=== PATIENT | female | born 1985 | race Caucasian/White ===

== ENCOUNTER 2020-01-26 07:40 | Inpatient (IN) | payer MEDICAID, SELFPAY ==
[2020-01-26] VITALS (52 sets, daily range): BP systolic 0–149; BP diastolic 0–86; PULSE 77–118; RESP 16–18; TEMP 36.6–37.6; BMI 29.2
[2020-01-26] MEDS: miSOPROStol 100 mcg tablet 25 MCG VAGINAL ×3 (08:35→19:43)
[2020-01-26 08:54] LABS: Basophils # 0.1 10^3/uL (0.0-0.1); Basophils % 0.4 %; Eosinophils # 0.1 10^3/uL (0.0-0.8); Eosinophils % 0.8 %; Hematocrit 33.2 % (37.0-47.0); Hemoglobin 10.9 g/dL (11.5-15.3); Lymphocytes # 1.9 10^3/uL (0.8-4.8); Mean Corpuscular HGB Conc 32.8 g/dL (30.0-36.0); Mean Corpuscular Hemoglobin 30.4 pg (28.0-34.0); Mean Corpuscular Volume 92.5 fL (81-99); Mean Platelet Volume 11.1 fL (7.4-10.4); Monocytes % 7.5 %; Neutrophils # 10.17 10^3/uL (1.8-7.7); Neutrophils % 76.7 %; Nucleated Red Blood Cells % 0 %; Platelet Count 232 10^3/cmm (130-400); Red Blood Count 3.59 10^6/uL (4.1-5.3); Red Cell Distribution Width 12.9 % (12.1-15.1); White Blood Count 13.2 10^3/uL (4.0-10.0)
[2020-01-26] MEDS: fentaNYL 50 mcg/mL INJ 2mL IVP ×3 (16:12→20:41)
[2020-01-26] MEDS: dextrose 5%-lactated ringers 1,000 ML 125 ML IV (16:12)
[2020-01-26] MEDS: morphine 4 mg/mL SDV 1 mL 8 MG IM (23:10)
[2020-01-26] MEDS: promethazine 25 mg/mL SDV 1 mL IM (23:10)
[2020-01-27] VITALS (193 sets, daily range): BP systolic 0–170; BP diastolic 0–103; PULSE 66–116; RESP 16–20; TEMP 36.3–37; O2SAT 98–100
[2020-01-27] MEDS: dextrose 5%-lactated ringers 1,000 ML 125 ML IV ×3 (03:04→18:43)
[2020-01-27] MEDS: fentaNYL 50 mcg/mL INJ 2mL IVP ×3 (06:48→16:05)
[2020-01-27] MEDS: miSOPROStol 100 mcg tablet 25 MCG VAGINAL (10:08)
[2020-01-27] MEDS: oxytocin 30 UNIT/500 ML BAG IV (15:03)
[2020-01-27] MEDS: lactated ringers 1,000 ML 999 ML IV ×2 (16:12→17:20)
--- NOTE | 2020-01-27 16:37 | PC.NURSE ---
anesthesia notified for epidural placement
--- NOTE | 2020-01-27 17:33 | ANES.PROC ---
Anesthesia Procedures Procedure/Date: 01/27/20 Epidural: Time Out Performed: Yes Consents Signed: Procedure Consent Consent: requested by attending/covering physician, risks and benefits reviewed and patient agrees to proceed Lumbar Level: L4-L5 Epidural position: sitting Epidural procedure: sterile prep of area, 1% lidocaine to numb the area, 18 g needle, negative for paresthesia passed, 1.5% xylocaine 1:200k epi, no systemic response and 0.2% Ropiavacaine @ mls/hr Additional Comments: Easy, single pass epidural with distinct saline GENEVIEVE; catheter advanced with great ease. No paresthesia or complication. Required continuous encouragement and coaching to maintain optimal procedural positioning and conditions.
--- NOTE | 2020-01-27 20:50 | PC.NURSE ---
Recurrent late decelerations noted in FHTs, pt repositioned at 2004, Pitocin turned off at 2009, O2 administered at 2012. Physician notified at 2018 of issue, resuscitation measures and return of FHTs to reactive. O2 off of patient at 2049.
[2020-01-28] VITALS (79 sets, daily range): BP systolic 0–150; BP diastolic 0–92; PULSE 78–130; RESP 8–20; TEMP 36.6–37.3
[2020-01-28] MEDS: dextrose 5%-lactated ringers 1,000 ML 125 ML IV ×2 (02:55→05:21)
[2020-01-28] MEDS: diphenhydrAMINE 50 mg/mL SDV 1mL 25 MG IVP (05:21)
--- NOTE | 2020-01-28 06:53 | P.HP_ITS ---
Providers/Chief Complaint Admitting Physician: Enoch Mohamud MD Primary Care Provider: Breanna Hawk MD Chief Complaint: INDUCTION OF LABOR History of Present Illness Saumya Saunders is a 34 year old female who is a 2 para 1 female at 39-1/2 weeks gestation. She is admitted to the hospital 2 days ago for cervical ripening for induction. She finally began making cervical change yesterday morning late and had spontaneous rupture membranes yesterday afternoon followed by further dilatation. She was approximately 7 cm x 9 p.m. She has been followed closely since that time and is dilated presently to approximately 9 cm dilatation. She is feeling a lot of pressure and discomfort. Presently she still at 0 station. heart tones have been very reassuring. Review of Systems Const: Reports: fatigue; Denies: fever(s) or chills ENMT: Denies: throat pain or oral sores Card: Denies: chest pain or palpitations Resp: Denies: dyspnea, productive cough or non-productive cough GI: Reports: abdominal pain (Contractions.); Denies: nausea or vomiting : Reports: vaginal discharge (Still clear fluid.); Denies: flank pain Musc: Reports: back pain; Denies: neck pain Neuro: Denies: headache(s), numbness in extremities or weakness in extremities Psych: Reports: anxiety (She is anxious because she has been here a little over 2 days with attempt ) Medications/Allergies Home Medications Medication Instructions Recorded Confirmed Last Taken Type Vitamin 1 tab PO DAILY 01/26/20 01/26/20 01/26/20 History Allergies Allergy/AdvReac Type Severity Reaction Status Date / Time No Known Allergies Allergy Verified 01/26/20 09:22 [facility] Acute Female Reproductive History: : 2 Vitals/I&O/Wt Last Vital Signs Temp 99.1 F 01/28/20 02:59 Pulse 104 H 01/28/20 06:39 Resp 17 01/27/20 18:30 BP 126/73 01/28/20 06:39 Pulse Ox 98 01/27/20 21:37 01/27/20 01/27/20 01/28/20 14:59 22:59 06:59 Intake Total 627.083 / 187.302 8996.400 / 2222.483 1100.784 / 3323.267 Balance 627.083 / 631.212 0046.400 / 2222.483 1100.784 / 3323.267 Weight last 48 hrs Weight 87.09 kg Physical Exam Const: COMMON NORMALS: no acute distress, average body habitus and healthy appearing HENMT: MOUTH: Normal oral and palatal mucosa present Resp: COMMON NORMALS: normal respiratory effort, No retractions, No use of accessory muscles and clear to auscultation bilaterally Cardio: COMMON NORMALS: regular rate, regular rhythm and No murmurs present (Cardio) GI: COMMON NORMALS: Normal to inspection, nondistended, normoactive bowel sounds present (She has a uterus.), Soft to palpation and non-tender : OB/EXTERNAL & SPECULUM: external exam normal MANUAL OB EXAM: dilated 9 cm, effaced fully and station 0 Extremity: COMMON NORMALS: normal to inspection, full ROM, no calf tenderness and no pedal edema Neuro: COMMON NORMALS: CN's II-XII intact bilaterally and moves all extremities Psych: COMMON NORMALS: mental status grossly normal and normal affect Urinary Catheter Management^: Major: Cath Placed During This Visit: yes Reason for Continuing Indwelling Catheter: Other Urinary Catheter Date of Insertion: 01/27/20 Urinary Catheter Time of Insertion: 18:30 Data : 01/26/20 08:20 A&P Assessment and plan (1) Term : I am afraid the patient may have a failure to descend and Major dilate. Will allow her to continue laboring at this time but she may require section if she does not make progress. Status: Acute Attestations Medical Necessity Statement*: This patient was admitted 2 days ago for induction and is still but nearing completion. She will require greater than 2 midnight hospital stay. Time Spent in Patient Care: Greater than 35 minutes Coding Level of Care Code Acute Child Psychometrist for Chg Fwd Diagnoses Term Z34.90
[2020-01-28] MEDS: ondansetron 2 mg/ML SDV 2 mL 4 MG IVP (07:35)
[2020-01-28] MEDS: hyDROXYzine 25 mg Capsule 50 MG PO (08:26)
--- NOTE | 2020-01-28 08:45 | ANES.PROC ---
Anesthesia Procedures Procedure/Date: 01/28/20 Procedure Narrative: Fentanyl 100mcg plus PF1% Lido 5ml given per epidural for increased labor pressure
--- NOTE | 2020-01-28 08:50 | PC.NURSE ---
0870 A Breakfield RN in room to assess and bolus epidural.
--- NOTE | 2020-01-28 11:09 | PM.DELIVERY ---
Delivery Note: Date of delivery: January 28, 2020 this 34-year-old 2 now para 2 female at 39 weeks and 5 days gestation was admitted 2 days prior to date of delivery for misoprostel cervical ripening for induction purposes. She was given multiple doses of misoprostol and made very slow change. Finally she began making bigger change and had spontaneous rupture membranes yesterday late afternoon. She did have some repetitive decelerations lasting about 8 minutes yesterday evening and this physician came in. The Pitocin augmentation was stopped at that time but everything recovered and a Pitocin was begun again. The tolerated the remainder of the labor process very well. The patient received epidural anesthesia but was not getting a lot of relief. She dilated to around 9 cm dilatation and stayed that way for several hours. She was given a new bolus of medicine and her epidural and it relaxed her and she dilated to complete cervical dilatation. She then pushed very well and delivered by spontaneous vaginal delivery healthy, viable female at 1047. There was no episiotomy but there was a small midline perineal laceration at delivery. This was repaired using 2-0 Vicryl suture with no problems. Upon delivery the 's head the mouth and nose were suctioned at the perineum. There was no nuchal cord. The left shoulder delivered anteriorly followed by the right shoulder. The infant was suctioned again and then laid on the mother's abdomen. After approximately 1 minute, the umbilical cord was clamped and then cut by the infant's father. The umbilical cord had 3 blood vessels. The placenta delivered spontaneously at 1050 without problems. The episiotomy was then repaired as stated above without problems. The vaginal vault was swept removing a few clots but no active bleeding and fundus was nice and firm. Apgars were 8 and 9 at 1 and 5 minutes respectively and estimated blood loss was 115 mL. The infant weighed 6 pounds 9 ounces. Pre-Delivery Course: This patient was followed by this physician throughout her without concerns or problems. Maternal blood type was A+ with antibody screen negative. Hepatitis B, hepatitis C, HIV and RPR were negative. Rubella was immune and group B strep was negative. Covid testing also done approximately 8 days prior to date of delivery was also negative. The patient did discuss with this physician and Dr. Segal the possibility of tubal ligation . Delivery: Spontaneous vaginal delivery. Post-Delivery Status: Patient is doing well at this time. Will evaluate to see if we are able to do tubal ligation with Covid testing 8 days ago. A&P Assessment and plan (1) Term : Status: Acute (2) Normal spontaneous vaginal delivery: Patient is doing well and will be followed for routine care. Tubal ligation if able otherwise will do it at 6 weeks. Status: Acute Coding Level of Care Code Acute Process Owner for Chg Fwd Diagnoses Term Z34.90 Normal spontaneous vaginal delivery O80
[2020-01-28] MEDS: lanolin oint 7 gm 1 APPLIC TOPICAL (13:06)
[2020-01-28] MEDS: benzocaine-menthol 78 gm Canister 1 SPRAY TOPICAL (13:07)
[2020-01-28] MEDS: ibuprofen 800 mg tablet PO ×2 (14:20→20:40)
[2020-01-28] MEDS: docusate sodium 100 mg Capsule PO (17:48)
[2020-01-29 00:27] LABS: Hemoglobin 9.2 g/dL (11.5-15.3); Mean Corpuscular HGB Conc 32.9 g/dL (30.0-36.0); Mean Corpuscular Hemoglobin 30.7 pg (28.0-34.0); Mean Corpuscular Volume 93.3 fL (81-99); Mean Platelet Volume 11.7 fL (7.4-10.4); Platelet Count 197 10^3/cmm (130-400); Red Cell Distribution Width 13.2 % (12.1-15.1); White Blood Count 15.7 10^3/uL (4.0-10.0)
[2020-01-29] MEDS: HYDROcodone-acetaminophen 5-325 mg Tablet PO ×2 (02:55→13:42)
[2020-01-29 04:45] VITALS: BP 120/79; PULSE 82; RESP 16; O2SAT 98
--- NOTE | 2020-01-29 05:34 | PM.OBGYCN ---
Providers/Reason for Consult Consulting Physican/Specialty*: Family medicine/OB Reason for Consult*: For a tubal ligation Attending Physician: Enoch Mohamud MD Primary Care Provider: Breanna Hawk MD [facility] Consult HPI History of Present Illness Saumya Saunders is a 34 year old 2 female at 39 weeks gestation who had an unremarkable delivery of a healthy . I had seen the patient earlier in her to discuss her desire for permanent sterilization. At that time we discussed the risks and alternatives. She made it clear that she wanted to proceed with a tubal ligation despite the risks and after full consideration of other forms of control. Present Details : 2 Para: 1 Review of Systems General: Reports: 10 or more systems reviewed and unremarkable except in HPI and below Const: Reports: fatigue; Denies: fever(s) Eyes: Denies: change in vision Card: Denies: chest pain Musc: Reports: back pain Derrick/Lymph: Denies: easy bruising Meds/Allergies Home Medications and Allergies Home Medications Medication Instructions Recorded Confirmed Last Taken Type Vitamin 1 tab PO DAILY 01/26/20 01/26/20 01/26/20 History Allergies Allergy/AdvReac Type Severity Reaction Status Date / Time No Known Allergies Allergy Verified 01/26/20 09:22 Current Medications Current Medications Generic Name Dose Route Start Last Admin Trade Name Freq PRN Reason Stop Dose Admin Hydrocodone Bitart/Acetaminophen 1 - 2 tab 01/28/20 11:06 01/29/20 02:55 Hydrocodone-Acetaminophen 5-325 Mg Tablet PO 1 tab Q6H PRN Administration MODERATE TO SEVERE PAIN Benzocaine 1 spray 01/28/20 11:06 01/28/20 13:07 Benzocaine-Menthol 78 Gm Canister TOPICAL 1 can PRN PRN Administration PAIN Docusate Sodium 100 mg 01/28/20 18:00 01/28/20 17:48 Docusate Sodium 100 Mg Capsule PO 100 mg BID CHAVEZ Administration Ibuprofen 800 mg 01/28/20 15:00 01/28/20 20:40 Ibuprofen 800 Mg Tablet PO 800 mg TID CHAVEZ Administration Lanolin 1 applic 01/28/20 11:06 01/28/20 13:06 Lanolin Oint 7 Gm TOPICAL 1 tube PRN PRN Administration DRYNESS Vitals/I&O/Wt Last Vital Signs Temp 98.0 F 01/28/20 20:45 Pulse 78 01/28/20 20:45 Resp 16 01/28/20 20:45 BP 122/73 01/28/20 20:45 Pulse Ox 98 01/27/20 21:37 01/28/20 01/28/20 01/29/20 14:59 22:59 06:59 Intake Total 156.333 / 156.333 Output Total 950 / 950 Balance -793.667 / -793.667 Physical Exam Const: COMMON NORMALS: patient oriented x3 and alert HENMT: COMMON NORMALS: moist oral mucous membranes HEAD & SCALP: normal to inspection Chest: COMMONS NORMALS: normal inspection of the chest Resp: COMMON NORMALS: clear to auscultation bilaterally AUSCULTATION: clear to auscultation bilaterally Cardio: COMMON NORMALS: regular rate and regular rhythm RATE: regular rate RHYTHM: regular rhythm GI: INSPECTION: Yes normal to inspection and Yes other (Gravid. Fundus is below the umbilicus.) Extremity: COMMON NORMALS: normal to inspection GENERAL: Yes edema (Trace) Neuro: COMMON NORMALS: patient oriented x3, moves all extremities and no sensory deficits noted SENSORIUM/ORIENTATION: Yes alert Psych: COMMON NORMALS: mental status grossly normal Skin: COMMON NORMALS: no rashes or lesions noted GENERAL SKIN EXAM: no rashes or lesions noted Urinary Catheter Management^: Major: Cath Placed During This Visit: yes, but has since been removed by the nurse Reason for Continuing Indwelling Catheter: Other Urinary Catheter Date of Insertion: 01/27/20 Urinary Catheter Time of Insertion: 18:30 Date Urinary Catheter Removed: 01/28/20 Time Urinary Catheter Discontinued: 10:30 A&P Assessment and plan (1) Normal spontaneous vaginal delivery: Status: Acute (2) Sterilization consult: At this point the tubal ligation is scheduled for 5:00 this afternoon. We once again discussed the risks of the procedure including the risks of bleeding, infection, and damage to intra-abdominal organs. We discussed the 1-200 chance becoming again despite a successful tubal ligation. We also discussed the increased risk of an ectopic . She and her partner had no further questions and wished to proceed. Status: Acute Consult Attestations Medical Necessity Statement: I anticipate the patient will be going home this evening, but possibly tomorrow depending on how she responds after her tubal ligation. Coding Level of Care Code Acute Precision Honer for Chg Fwd Diagnoses Normal spontaneous vaginal delivery O80 Sterilization consult Z30.09
[2020-01-29] MEDS: docusate sodium 100 mg Capsule PO (09:00)
[2020-01-29] MEDS: ibuprofen 800 mg tablet PO (09:00)
[2020-01-29] MEDS: prenatal vitamin Capsule 1 CAP PO (09:00)
--- NOTE | 2020-01-29 09:09 | PM.OBGYPN ---
PHOTOLITHOGRAPHER Subjective Labor: Station: +1 Amniotic Membrane Status: Ruptured Monitor Mode: External Contraction Pattern: Regular Status: Category I Vitals/I&O/Wt Last Vital Signs Temp 98.0 F 01/28/20 20:45 Pulse 82 01/29/20 04:45 Resp 16 01/29/20 04:45 BP 120/79 01/29/20 04:45 Pulse Ox 98 01/29/20 04:45 Physical Exam Narrative: EXAM NARRATIVE: Patient is doing well and baby is breast-feeding well. She has just had mild lochia with no significant problems. She is ambulating well and tolerating a regular diet. She is planning on having a tubal ligation this evening and possibly going home this evening if everything goes well. Const: COMMON NORMALS: no acute distress Resp: COMMON NORMALS: normal respiratory effort, No retractions, No use of accessory muscles and clear to auscultation bilaterally AUSCULTATION: clear to auscultation bilaterally Cardio: COMMON NORMALS: regular rate, regular rhythm and No murmurs present (Cardio) RATE: regular rate RHYTHM: regular rhythm GI: COMMON NORMALS: Normal to inspection, nondistended, normoactive bowel sounds present, Soft to palpation and non-tender (Fundus is firm.) PALPATION: Yes Soft to palpation Extremity: COMMON NORMALS: normal to inspection and no pedal edema Neuro: COMMON NORMALS: CN's II-XII intact bilaterally, no focal motor deficits and no sensory deficits noted Psych: COMMON NORMALS: mental status grossly normal and normal affect Urinary Catheter Management^: Major: Cath Placed During This Visit: yes, but has since been removed by the nurse Reason for Continuing Indwelling Catheter: Other Urinary Catheter Date of Insertion: 01/27/20 Urinary Catheter Time of Insertion: 18:30 Date Urinary Catheter Removed: 01/28/20 Time Urinary Catheter Discontinued: 10:30 Data : 01/28/20 23:30 A&P Assessment and plan (1) Normal spontaneous vaginal delivery: Patient is doing well at this time. We will continue routine care and possibly home this evening after tubal ligation is performed if everything goes well. Status: Acute Attestations Medical Necessity Statement*: This patient was in the hospital for 2 days for labor and delivery and is now day 1 . She has required hospitalization for this and can possibly go home this evening. Time Spent in Patient Care: less than 15 minutes Coding Level of Care Code Acute Chip Mixing Machine Operator for Chg Fwd Diagnoses Normal spontaneous vaginal delivery O80
--- NOTE | 2020-01-29 15:10 | PM.OBGYDC ---
Discharge Providers NUCLEAR RADIATION ENGINEER Date of Admission: 01/26/20 07:40 Date of Discharge: 01/29/20 Attending Provider at Admission: Enoch Mohamud MD Attending Provider at Discharge: Enoch Mohamud MD Primary Care Provider: Breanna Hawk MD Diagnoses at Discharge Discharge Diagnosis (1) Normal spontaneous vaginal delivery: Status: Acute Reason for Visit Reason for Visit: INDUCTION OF LABOR Hospital Course Hospital Course Patient has done very well sice delivery. She is ambulating well and tolerating regular diet. Her tubal ligation could not be done as Covid results were not back in time to get her on the schedule. She is felt to be stable for discharge. Will plan referral for tubal at 6 weeks . Information Peripartum Data: Infant Delivery Method: Vaginal Physical Exam Const: COMMON NORMALS: no acute distress Resp: COMMON NORMALS: normal respiratory effort, No retractions, No use of accessory muscles and clear to auscultation bilaterally AUSCULTATION: clear to auscultation bilaterally Cardio: COMMON NORMALS: regular rate, regular rhythm and No murmurs present (Cardio) RATE: regular rate RHYTHM: regular rhythm GI: COMMON NORMALS: Normal to inspection, nondistended, normoactive bowel sounds present, Soft to palpation and non-tender PALPATION: Yes Soft to palpation Extremity: COMMON NORMALS: no pedal edema Psych: COMMON NORMALS: mental status grossly normal, Normal thought process present, cooperative and normal affect THOUGHT PROCESS: Normal thought process present Urinary Catheter Management^: Major: Cath Placed During This Visit: yes, but has since been removed by the nurse Reason for Continuing Indwelling Catheter: Other Urinary Catheter Date of Insertion: 01/27/20 Urinary Catheter Time of Insertion: 18:30 Date Urinary Catheter Removed: 01/28/20 Time Urinary Catheter Discontinued: 10:30 Discharge Data Data Completed and Pending: Pending at discharge Category Date Time Status PTC COVID [Mason virus Lab Test PTC ] Routine Lab 01/28/20 11:35 Stop Req Labs from last 24 hours 01/28/20 23:30 WBC 15.7 H RBC 3.00 L Hgb 9.2 L Hct 28.0 L MCV 93.3 MCH 30.7 MCHC 32.9 RDW 13.2 Plt Count 197 MPV 11.7 H Vitals: Last Vital Signs Temp 98.0 F 12/16/20 20:45 Pulse 82 01/29/20 04:45 Resp 16 01/29/20 04:45 BP 120/79 01/29/20 04:45 Pulse Ox 98 01/29/20 04:45 Discharge Plan Discharge Patient Disposition: Home Condition: Stable Prescriptions: New docusate sodium [DOK] 100 mg Capsule 100 mg PO BID Qty: 60 RF: 1 ibuprofen 800 mg Tablet 800 mg PO TID Qty: 90 RF: 2 Lanolin (HPA) 100 % Cream 1 applic topical PRN PRN (Reason: Dryness) Qty: 90 RF: 1 Continued Vitamin 1 tab PO DAILY RF: 0 Discharge Orders: Discharge Order (Routine); Ordered 01/29/20 Ordered By: Enoch Mohamud Referrals: Enoch Mohamud MD [Physician] - 03/09/20 1:15 pm (* Your 6 week follow up is with Dr. Mohamud on 03/06/2019 at 1:15pm. You will discuss your tubal at this appointment) Discharge Diet: Usual diet Discharge Activity: Resume usual activity Patient Instructions: Ibuprofen (By mouth), Lanolin (On the skin), Vaginal Delivery (DC), OB Discharge Report, OB Food/Drug Interaction Guide, OB Home Care, OB Proud Parent Packet Discharge Attestations NUCLEAR RADIATION ENGINEER Time Spent in Discharge Care*: less than 30 min Specific Discharge Activities: Specific discharge activities: educating patient, documenting/other paperwork and evaluating patient/reviewing data Coding Level of Care Code Acute Forestry Aid for Chg Fwd Diagnoses Normal spontaneous vaginal delivery O80
[2020-01-29 16:45] VITALS: BP 120/80; PULSE 80; RESP 17; TEMP 36.7
[2020-01-29 16:47] VITALS: BP 120/80; PULSE 80; RESP 17; TEMP 36.7
[2020-01-29 17:09] LABS: Coronavirus Lab Test PTC Negative
== END 2020-01-29 16:58 | disposition home or self-care (01) | DRG 807 ==
PROVIDERS: Admitting Provider Family Medicine; PCP Family Medicine; Visit Provider Family Medicine
DX: O76 Abnormality in fetal heart rate and rhythm complicating labor and delivery (principal); Z37.0 Single live birth; Z3A.39 39 weeks gestation of pregnancy; O70.0 First degree perineal laceration during delivery
CPT/HCPCS: 12345; 36415; 51702; 59025; 59409; 85025; 85027; 87635; 90471; 90686; 96372; 96375; 98960; 99211; J1200; J2270; J2405; J2550; J2795; J3010

== ENCOUNTER 2025-01-23 14:25 | Emergency (ER) | payer BC, SELFPAY ==
[2025-01-23 14:31] VITALS: BP 103/76; PULSE 94; RESP 17; TEMP 36.8; O2SAT 99
--- NOTE | 2025-01-23 14:38 | ED_ITS ---
HPI - Neuro Symptoms/Deficit 2 General: Chief Complaint: Neuro Symptoms/Deficit Stated Complaint: flashes of light rt eye / shakes Time Seen by Provider: 01/23/25 14:37 History of Present Illness: 39-year-old female with a history of adama neno headaches who presents emergency room with neurologic symptoms. She says about 15 minutes ago she developed a strange feeling in her right eye and vision changes. Said she felt shaky. She also felt like she had some speech changes which are not present on my exam. Related Data Home Medications ?Medication ?Instructions ?Recorded ?Confirmed cyclobenzaprine 10 mg tablet 10 mg PO DAILY PRN migrai ap 01/23/25 01/23/25 meloxicam 15 mg tablet 15 mg PO DAILY PRN headaches 01/23/25 01/23/25 ondansetron 4 mg disintegrating 4 mg PO TID PRN Nausea And Vomiting 01/23/25 01/23/25 tablet Allergies Allergy/AdvReac Type Severity Reaction Status Date / Time No Known Allergies Allergy Verified 01/23/25 14:37 Review of Systems 2 Narrative: Constitutional symptoms: Negative except as documented in HPI. Skin symptoms: Negative except as documented in HPI. Eye symptoms: Negative except as documented in HPI. ENMT symptoms: Negative except as documented in HPI. Respiratory symptoms: Negative except as documented in HPI. Cardiovascular symptoms: Negative except as documented in HPI. Gastrointestinal symptoms: Negative except as documented in HPI. Genitourinary symptoms: Negative except as documented in HPI. Musculoskeletal symptoms: Negative except as documented in HPI. Neurologic symptoms: Negative except as documented in HPI. Psychiatric symptoms: Negative except as documented in HPI. Endocrine symptoms: Negative except as documented in HPI. PFSH ED 2 PFSH: Surgical History (Updated 03/20/20 @ 15:37 by Franki Solares MD) S/P bilateral foot surgery (~2004) Treatment for bunions. Age 19. Family History (Updated 03/20/20 @ 15:38 by Franki Solares MD) Father CAD (coronary artery disease) Hypertension Grandmother Diabetes Maternal Mother COPD (chronic obstructive pulmonary disease) CAD (coronary artery disease) Social History (Updated 03/20/20 @ 15:42 by Franki Solares MD) Smoking and tobacco/nicotine status: current every day tobacco/nicotine user cigarettes Packs smoked per day: 1 [ Other cigarette details: Started age 17. Stopped during .] Alcohol intake: current Alcohol intake frequency: holidays/special occasions only Substance/Drug Use: never Physical Exam 2 Narrative: EXAM NARRATIVE: General: Alert, no acute distress. Skin: Warm, dry. Head: Normocephalic, atraumatic. Neck: Supple, trachea midline. Eye: Extraocular movements are intact. Ears, nose, mouth and throat: mucosa moist. Cardiovascular: Regular, Normal peripheral perfusion. Respiratory: Lungs are clear to auscultation, respirations are non-labored, breath sounds are equal, Symmetrical chest wall expansion. Gastrointestinal: Soft, Nontender, Non distended Musculoskeletal: Normal ROM, no deformity. Neurological: Alert and oriented, No focal neurological deficit observed. Psychiatric: Cooperative, appropriate mood & affect. Course 2 Vital Signs: Vital signs: Vital Signs Temperature 98.3 F 01/23/25 14:31 Pulse Rate 81 01/23/25 17:00 Respiratory Rate 17 01/23/25 16:00 Blood Pressure 112/68 01/23/25 16:30 Pulse Oximetry 98 01/23/25 17:00 Oxygen Delivery Me thod Room Air 01/23/25 17:00 MDM - Neuro Symptoms/Deficit Medical Decision Making Medical decision making Patient's reason for coming to the emergency room: Neurologic symptoms, vision changes Social determinants: Patient is employed I reviewed the patient's medical record. Patient last visit to this facility was to OB back in 2020. I reviewed the patient's current home meds No chronic medications Alternate historians: None Differential diagnosis for patient with focal neurologic deficit(s) includes but not limited to and based on the above HPI, review of systems and physical exam: ischemic stroke, hemorrhagic stroke and embolic stroke secondary to atrial fibrillation), TIA, Toro's palsy, metabolic encephalopathy with previous stroke. Orders placed to evaluate differential diagnosis based on the above differential, HPI and physical exam 1420: Last known well time. 1440 my exam. NIH of 1. NIH Stroke Scale/Score (NIHSS) from [email or web address] on 01/23/2025 All calculations should be rechecked by clinician prior to use RESULT SUMMARY: 1 points NIH Stroke Scale INPUTS: 1A: Level of consciousness ?> 0 = Alert; keenly responsive 1B: Ask month and age ?> 0 = Both questions right 1C: 'Blink eyes' & 'squeeze hands' ?> 0 = Performs both tasks 2: Horizontal extraocular movements ?> 0 = Normal 3: Visual moran ?> 1 = Partial hemianopia 4: Facial palsy ?> 0 = Normal symmetry 5A: Left arm motor drift ?> 0 = No drift for 10 seconds 5B: Right arm motor drift ?> 0 = No drift for 10 seconds 6A: Left leg motor drift ?> 0 = No drift for 5 seconds 6B: Right leg motor drift ?> 0 = No drift for 5 seconds 7: Limb Ataxia ?> 0 = No ataxia 8: Sensation ?> 0 = Normal; no sensory loss 9: Language/aphasia ?> 0 = Normal; no aphasia 10: Dysarthria ?> 0 = Normal 11: Extinction/inattention ?> 0 = No abnormality CT head: No acute intracranial process. No intracranial hemorrhage, no evidence of infarct. No evidence of acute fracture. This was reviewed and interpreted by myself the emergency room physician. I also reviewed the radiology report. EKG time 1505. Rate 86.: Normal sinus rhythm, No ST-T changes, no ectopy, normal IA & QRS intervals, This was reviewed and interpreted by myself the ER physician at 1510 Lab Review: Laboratory results were reviewed and interpreted by myself the emergency room physician. No leukocytosis. No anemia. No renal failure. Reexamination: Patient is quite a bit improved. She still has some mild right eye lateral blurred vision. This is isolated to the right eye. Vision was grossly normal on exam and she did note this was isolated and not in her left eye when that was isolated. She will return to the emergency room if things worsen. Consultation: I spoke Dr. Campos. Dr. Perez will see the patient first thing on Sunday. Assessment and plan: Vision changes Possible atypical migraine ?Symptoms have improved considerably after receiving valproic acid - Discharged home - Discussed plan with patient. Answered any questions. - Evaluation and treatment of this problem were appropriate in the emergency setting. Lab Data 01/23/25 15:27 01/23/25 15:[address] 01/23/25 14:38 IMPRESSION: 1. No acute intracranial hemorrhage or edema. 2. Normal CT head. 3. LEFT maxillary sinusitis. Notified Andria Dick MD at 01/23/2025 2:52 PM. Laboratory Results WBC 9.72 10^3/uL (3.29-11.43) 12/12/25 15: RBC 4.50 10^6/uL (3.85-5.65) 01/23/25 15: Hgb 13.90 g/dL (11.27-16.99) 01/23/25 15:27 Hct 41.1 % (36-47) 01/23/25 15: MCV 91.3 fl (85-98) 01/23/25 15: MCH 30.9 pg (27-33) 01/23/25 15: MCHC 33.8 g/dL (30-55) 01/23/25 15: RDW 12.5 % (12.1-15.1) 01/23/25 15: Plt Count 267 10^3/cmm (157-399) 01/23/25 15: MPV 10.1 fL (7.4-10.4) 01/23/25 15: Neut % (Auto) 60.7 % 01/23/25 15: Lymph % (Auto) 30.0 % 01/23/25 15:27 [place] % (Auto) 6.3 % 01/23/25 15:27 Eos % (Auto) 1.9 % 01/23/25 15: Baso % (Auto) 0.7 % 01/23/25: Neut # (Auto) 5.90 10^3/uL (1.8-7.7) 01/23/25 15: Lymph # (Auto) 2.9 10^3/uL (0.8-4.8) 01/23/25 15: [place] # (Auto) 0.6 10^3/uL (0.2-0.9) 01/23/25 15:27 Eos # (Auto) 0.2 10^3/uL (0.0-0.8) 01/23/25: Baso # (Auto) 0.1 10^3/uL (0.0-0.1) 01/23/25 15: Nucleated RBC % (auto) 0 % 01/23/25 15: Nucleated RBCs # 0.0 /100WBC 01/23/25 15: PT 12.50 SECONDS (12.1-14.9) 01/23/25 15:27 INR 0.88 (0.8-1.2) 01/23/25 15:27 APTT 26.9 SECONDS (23.9-36.7) 01/23/25 15:27 Sodium 135 mmol/L (136-145) L 01/23/25 15:27 Potassium 3.7 mmol/L (3.5-5.1) 01/23/25 15:27 Chloride 100 mmol/L (98-107) 01/23/25 15:27 Carbon Dioxide 24 mmol/L (22-29) 01/23/25 15:27 Anion Gap 14.7 (5-19) 01/23/25 15:27 BUN 8 mg/dL (6-20) 01/23/25 15:27 Creatinine 0.6 mg/dL (0.5-0.9) 01/23/25 15:27 GFR Calculation 111.9 mL/min (90-130) 01/23/25 15:27 Glucose 88 mg/dL (65-115) 01/23/25 15:27 POC Glucose 90 mg/dL (70-110) 01/23/25 14:44 Calculated Osmolality 278 mOsm/kg (285-295) L 01/23/25 15:27 Lactic Acid 0.9 mmol/L (0.5-2.2) 01/23/25 15:27 Calcium 9.0 mg/dL (8.5-10.5) 01/23/25 15:27 Total Bilirubin 0.3 mg/dL (0.15-1.2) 01/23/25 15:27 AST 11 U/L (0-32) 01/23/25 15:27 ALT 17 U/L (0-33) 01/23/25 15:27 Alkaline Phosphatase 73 U/L (35-105) 01/23/25 15:27 Total Protein 6.8 g/dL (6.6-8.7) 01/23/25 15:27 Albumin 4.2 g/dL (3.5-5.2) 01/23/25 15:27 Globulin 2.6 g/dL (1.3-4.6) 01/23/25 15:27 All radiology interpretation(s) finalized by discharge Discharge Plan Discharge Patient Disposition: Home Clinical Impression: Alteration in vision, Atypical migraine Condition: Stable Prescriptions: No Action cyclobenzaprine [Flexeril] 10 mg Tablet 10 mg PO DAILY PRN (Reason: migraines) meloxicam 15 mg Tablet 15 mg PO DAILY PRN (Reason: headaches) ondansetron [Zofran ODT] 4 mg Tablet,Disintegrating 4 mg PO TID PRN (Reason: Nausea And Vomiting) Discharge Orders: Discharge ED (Routine); Ordered 01/23/25 Ordered By: Andria Dick Referrals: rosalind [Other] Ever Perez [Referring, Opthalmology] - 01/26/25 9:00 am Rosemarie Madsen PA [Primary Care Provider, [facility] [employer]] Discharge Diet: Usual diet Discharge Activity: Increase activity as tolerated Patient Instructions: Blurred Vision (ED), Opioid Safety, Pain Management, Patient Portal & Umesh Instructions Activity Restrictions/Additional Instructions: Thank you for choosing [facility] for your healthcare needs today. You have been screened and evaluated and felt safe for discharge. Health conditions do change or evolve sometimes and as such it is important that you follow up with your Primary Doctor to be re checked, 3-5 days is a general good time frame for follow up. You are always welcome to return to the ED for re assessment if your symptoms are worsening or you have new concerns. (Please note that included in your discharge packet is information concerning opioid safety and pain management. This information is given to all patients who are discharged from the ER regardless of their discharge diagnosis or the medicines they usually take or are prescribed.) Print Language: [place] Island[place] Coding Level of Care Code ED Supervisor [employer] for Lily Brown
--- NOTE | 2025-01-23 14:38 | CT_ITS ---
WS: [id number] CT HEAD NONCONTRAST HISTORY: possible stroke TECHNIQUE: Contiguous axial imaging performed through the brain. Bone and soft tissue windows. Sagittal and coronal reformats reviewed. All CT scans at [facility] use at least one of these dose optimization techniques: automated exposure control; mA and/or kV adjustment per patient size (includes targeted exams where dose is matched to clinical indication); or iterative reconstruction. DLP: 1045.70 mGy COMPARISON: None available. No acute intracranial hemorrhage, midline shift or mass effect. No atrophy or prior infarcts or herniation. Ventricles: Normal size with no hydrocephalus. Paranasal sinuses: Air-fluid level in the LEFT maxillary sinus. Mastoid air cells: Well pneumatized. Calvarium and scalp: Skull is intact with no soft tissue edema or swelling. CT/CT head thrombolytic 50481 IMPRESSION: 1. No acute intracranial hemorrhage or edema. 2. Normal CT head. 3. LEFT maxillary sinusitis. Notified Andria Dick MD at 01/23/2025 2:52 PM.
--- NOTE | 2025-01-23 14:47 | ECG_ITS ---
[employer] Test Date: 2025-01-23 Pat Name: Saumya Aiken Department: Room: Gender: Female Refuge Manager: : 1985 Requested By: Andria Gleason Order Number: [id number] Ronak MD: SHAWN WILBURN Measurements Intervals [place] Rate: 86 P: 45 CA: 175 QRS: 75 QRSD: 101 T: 46 QT: 364 QTc: 438 Interpretive Statements SINUS RHYTHM LOW QRS VOLTAGE IN PRECORDIAL LEADS [QRS DEFLECTION < 1.0 mV IN CHEST LEADS] POSSIBLE RIGHT VENTRICULAR CONDUCTION DELAY [RSR (QR) IN V1/V2] No previous ECG available for comparison Electronically Signed On 01-23-2025 18:29:07 FACILITIES FLIGHT CHECK PILOT by SHAWN WILBURN [email or web address]
[2025-01-23 15:32] VITALS: BP 119/85; PULSE 89; O2SAT 97
--- NOTE | 2025-01-23 15:33 | PC.NURSE ---
PT REFUSED UA. DR. SUSAN LIMON.
[2025-01-23] MEDS: valproic acid inj 500 MG in sodium chloride 0.9% (plus) 50 ML 55 MG IV (15:40)
[2025-01-23 15:42] LABS: Hematocrit 41.1 % (36-47); Hemoglobin 13.90 g/dL (11.27-16.99); Mean Corpuscular HGB Conc 33.8 g/dL (30-55); Mean Corpuscular Hemoglobin 30.9 pg (27-33); Mean Corpuscular Volume 91.3 fl (85-98); Nucleated Red Blood Cells % 0 %; Platelet Count 267 10^3/cmm (157-399); Red Blood Count 4.50 10^6/uL (3.85-5.65); White Blood Count 9.72 10^3/uL (3.29-11.43)
--- NOTE | 2025-01-23 15:47 | PC.PHAR ---
Pt unable to remember exactly what medications she takes. Phoned Nisreen (who has her last name as Chip) for medication list. Pt states both names are correct due to name on insurance card. Verified medications with last fill date
[2025-01-23 15:53] LABS: INR 0.88 (0.8-1.2); Prothrombin Time 12.50 SECONDS (12.1-14.9)
[2025-01-23 15:54] LABS: Partial Thromboplastin Time 26.9 SECONDS (23.9-36.7)
[2025-01-23 15:58] LABS: Alanine Aminotransferase 17 U/L (0-33); Albumin Level 4.2 g/dL (3.5-5.2); Alkaline Phosphatase 73 U/L (35-105); Anion Gap 14.7 (5-19); Aspartate Amino Transferase 11 U/L (0-32); Blood Urea Nitrogen 8 mg/dL (6-20); Calcium 9.0 mg/dL (8.5-10.5); Carbon Dioxide 24 mmol/L (22-29); Chloride 100 mmol/L (98-107); Creatinine Clr Calc Pharmacy 140.6699; Globulin 2.6 g/dL (1.3-4.6); Glucose 88 mg/dL (65-115); Lactic Sepsis W/Reflex 0.9 mmol/L (0.5-2.2); Osmolality Calculated 278 mOsm/kg (285-295); Potassium 3.7 mmol/L (3.5-5.1); Sodium 135 mmol/L (136-145); Total Protein 6.8 g/dL (6.6-8.7)
[2025-01-23 16:00] VITALS: BP 127/68; PULSE 85; RESP 17; O2SAT 99
[2025-01-23 16:30] VITALS: BP 112/68; PULSE 80; O2SAT 97
--- NOTE | 2025-01-23 16:48 | PC.NURSE ---
Pt states headpain rated 0 no pain, pt vision acuity test 20/30. Dr. Dick notified.
[2025-01-23 17:00] VITALS: PULSE 81; O2SAT 98
[2025-01-23 17:24] VITALS: BP 132/74; PULSE 85; O2SAT 98
== END 2025-01-23 17:25 | disposition home or self-care (01) ==
PROVIDERS: Emergency Provider Emergency Medicine; PCP Physician Assistant
DX: H53.9 Unspecified visual disturbance (principal); G43.809 Other migraine, not intractable, without status migrainosus; F17.210 Nicotine dependence, cigarettes, uncomplicated
CPT/HCPCS: 36415; 36416; 70450; 80053; 82962; 83605; 85025; 85610; 85730; 93005; 96365; 99285; J3490; J7030; J9999